=== PATIENT | male | born 1965 | race Caucasian/White ===

== ENCOUNTER 2016-12-01 11:20 | Emergency (ER) | payer MEDICAID | END 2016-12-01 13:06 | disposition short-term general hospital (02) | LOC: D.ER 11:20 | DX: T21.34XA Burn of third degree of lower back, initial encounter (principal); T31.10 Burns involving 10-19% of body surface with 0% to 9% third degree burns; X08.8XXA Exposure to other specified smoke, fire and flames, initial encounter; Y93.89 Activity, other specified; Y92.019 Unspecified place in single-family (private) house as the place of occurrence of the external cause; F17.200 Nicotine dependence, unspecified, uncomplicated ==